=== PATIENT | female | born 1945 | race Caucasian/White ===

== ENCOUNTER → 2018-10-31 | Outpatient (CLI) | payer MEDICARE, OTHER ==
[2018-10-31 13:54] LABS: Bilirubin, Urine Neg (Neg); Blood, Urine Neg (Neg); Glucose Qualitative, Urine Neg (Neg); Ketones, Urine Neg (Neg); Leukocyte Esterase, Urine Neg (Neg); Nitrite, Urine Neg (Neg); Protein, Urine 2+ (Neg); Specific Gravity, Urine 1.015 (1.003-1.022); Urobilinogen, Urine NORM (Normal)
[2018-10-31 14:06] LABS: Appearance, Urine Clear (Clear); Color, Urine Yellow (P-Yellow)
[2018-10-31 14:07] LABS: Red Blood Cells, Urine 0-2 /hpf (0-2); White Blood Cells, Urine Not Seen /hpf (0-5)
[2018-10-31 14:08] LABS: Bacteria Few /hpf; Squamous Epithelial Cells Rare /hpf (Few)
[2018-10-31 14:27] LABS: Protein, Urine Random 25.1 mg/dL (0.0-11.9)
[2018-10-31 14:32] LABS: Creatinine, Urine Random 30.4 mg/dL (27.00-270.00)
== END | disposition home or self-care (01) ==
LOC: LAB SHORT 12:45 → LAB 12:45
PROVIDERS: Internal Medicine
DX: N18.3 Chronic kidney disease, stage 3 (moderate) (principal)
CPT/HCPCS: 81001; 82570; 84156

== ENCOUNTER 2025-06-09 12:25 | Emergency (ER) | payer OTHER, MEDICARE ==
[~2025-06-09] VITALS: Ht 160 cm; Wt 86.6 kg
[~2025-06-09 12:25] MED LIST: ACET325 PO; AMLODIPINE-BEN1 EAC3 PO; B-121000 MC7 SL; BISA5EC PO; DOCU100 PO; ENOX40I SC; FUROSEMIDE20 MG PO; HYDR1TAB94 PO; JARDIANCE25 MG PO; MULTI-VITAMIN1 EAC2 PO; POTA10T PO; SENNA LAXATIVE8.6 MG PO
[2025-06-09 15:04] VITALS: BP 160/71
== END 2025-06-09 16:38 | disposition home or self-care (01) ==
LOC: ER 12:25
DX: S43.402A Unspecified sprain of left shoulder joint, initial encounter (principal); S46.912A Strain of unspecified muscle, fascia and tendon at shoulder and upper arm level, left arm, initial encounter; I11.0 Hypertensive heart disease with heart failure; I50.9 Heart failure, unspecified; Z87.891 Personal history of nicotine dependence; W01.190A Fall on same level from slipping, tripping and stumbling with subsequent striking against furniture, initial encounter
CPT/HCPCS: 73030; 99283-25